=== PATIENT | male | born 1995 | race Caucasian/White ===

== ENCOUNTER 2021-10-05 12:38 | Outpatient (CLI) | payer OTHER, SELFPAY ==
[2021-10-05 13:42] LABS: SARS-CoV-2 Ag Positive (Negative)
== END 2021-10-05 12:39 | disposition home or self-care (01) ==
LOC: CHSLAB 12:43
PROVIDERS: PCP Physician Assistant; Visit Provider Physician Assistant
DX: U07.1 COVID-19 (principal)
CPT/HCPCS: 87426; C9803